=== PATIENT | female | born 1935 | race Caucasian/White ===

== ENCOUNTER 2018-11-30 07:21 | Outpatient (CLI) | payer MEDICARE ==
--- NOTE | 2018-11-30 09:10 | ULT ---
THYROID ULTRASOUND: INDICATIONS: Goiter. COMPARISON: Thyroid ultrasound exam dated 06/14/2014. That exam showed a diffusely heterogeneously enlarged thyr oid. FINDINGS: Both lobes show diffuse heterogeneity and both lobes are enlarged, similar to the prior exam. The ri ght lobe measures 5.8 x 3.1 x 3.2 cm. The left lobe measures 5.6 x 3.2 x 3.4 cm. A heterogeneous nodular density in the inferior right lobe measures 2.0 to 2.4 cm. It has a similar appearance to the prior study, although more cystic components were present at that time. There is a more circumscribed, solid appearing nodule in the mid left lobe, measuring 2.0 to 2.7 cm. This nodular density is better defined today than on the prior study. Another fairly well circumscribed nodular density in the inferior left lobe measures 2.1 to 2.5 cm. There are a few scattered small cystic nodules seen in both lobes. IMPRESSION: Enlarged, heterogeneous thyroid, similar to prior examination. There are bilateral thyroid nodules s een today, as described above. POS: [facility]
--- NOTE | 2018-11-30 14:36 | NM ---
RADIONUCLIDE PARATHYROID SCAN WITH PLANAR AND SPECT-CT IMAGES: HISTORY: Hypercalcemia. RADIOPHARMACEUTICAL:27.5mCi technetium 99m-sestamibi injected intravenously FINDINGS: There is physiologic uptake in the salivary glands and thyroid gland. No abnormal areas of tracer localization are seen in the neck or chest. IMPRESSION: No scintigraphic evidence of parathyroid adenoma
== END 2018-11-30 07:22 | disposition home or self-care (01) ==
LOC: ULT 07:21
PROVIDERS: ATTEND Otolaryngology Plastic Surgery within the Head & Neck
DX: E04.2 Nontoxic multinodular goiter (principal); E83.52 Hypercalcemia; E04.9 Nontoxic goiter, unspecified
CPT/HCPCS: 76536; 78072; A9500

== ENCOUNTER 2018-12-14 06:54 | Day surgery (SDC) | payer MEDICARE ==
[2018-12-13 14:21] VITALS: BMI 18.8
[2018-12-14] MEDS ORDERED: Lidocaine 1% w/Epinephrine 1:100K 20 ML VIAL ONE (08:27)
[2018-12-14 08:31] LABS: Hemoglobin 11.9 g/dL (12.0-16.0)
[2018-12-14 08:40] LABS: Anion Gap 9 mmol/L (10-20); BUN (Urea Nitrogen) 15 mg/dL (9.8-20.1); Calc. Creatinine Clearance 41 mL/min (70-130); Carbon Dioxide 28 mmol/L (23-31); Chloride 103 mmol/L (98-107); Estimated GFR-MDRD 62; Glucose 101 mg/dL (83-110); Potassium 4.4 mmol/L (3.5-5.1); Sodium 136 mmol/L (136-145)
[2018-12-14] MEDS ORDERED: Fentanyl 100 MCG/2 ML VIAL ONE (08:57)
[2018-12-14] MEDS ORDERED: Bacitracin Zinc Ointment 30 gm TUBE ONE (10:58)
[2018-12-14] MEDS ORDERED: Ondansetron PF 4 MG/2 ML Vial ONE (12:52)
[2018-12-14] MEDS ORDERED: Lidocaine 1% PF 5 ML VIAL ONE (12:52)
[2018-12-14] MEDS ORDERED: PHENYLEPHRINE-NS 100 MCG/ML 10 ML SYRINGE ONE (12:52)
[2018-12-14] MEDS ORDERED: Glycopyrrolate 0.2 MG/ML 5 ML SYRINGE ONE (12:52)
[2018-12-14] MEDS ORDERED: PROPOFOL 200 MG/20 ML VIAL ONE (12:52)
[2018-12-14] MEDS ORDERED: Rocuronium Bromide 10 MG/ML (10ML VIAL) ONE (12:52)
[2018-12-14] MEDS ORDERED: ePHEDrine 50 MG/ML VIAL ONE (12:52)
[2018-12-14] MEDS ORDERED: Dexamethasone 20 MG/5 ML VIAL ONE (12:52)
--- NOTE | 2018-12-14 18:14 | EKG ---
Test Reason : PREOP Blood Pressure : / mmHG Vent. Rate : 069 BPM Atrial Rate : 069 BPM P-R Int : 164 ms QRS Dur : 086 ms QT Int : 422 ms P-R-T Axes : 068 049 036 degrees QTc Int : 452 ms Normal sinus rhythm Moderate voltage criteria for LVH, may be normal variant Borderline ECG No previous ECGs available Confirmed by DR. Kalina AGUDELO ([id number]) on 12/14/2018 6:14:02 PM Referred By: CARRI Confirmed By:DR. Kalina AGUDELO
--- NOTE | 2018-12-15 12:33 | OP ---
DATE OF PROCEDURE: 12/14/2018 PREOPERATIVE DIAGNOSES: 1. Hyperparathyroidism. 2. Hypercalcemia. POSTOPERATIVE DIAGNOSES: 1. Hyperparathyroidism. 2. Hypercalcemia. PROCEDURES PERFORMED: 1. Exploration of parathyroid. 2. Left parathyroidectomy. 3. Intraoperative laryngeal nerve monitoring. ESTIMATED BLOOD LOSS: 10 mL. ANESTHESIA: GETA. COMPLICATIONS: None. DESCRIPTION OF PROCEDURE: The patient was taken to the operating room and placed supine on the table. General endotracheal anesthesia was obtained by the Anesthesia Staff. The indirect laryngoscope was used to visualize the laryngeal electrodes on the endotracheal tube and they were confirmed to be between the vocal cords bilaterally. Following this, the shoulder roll was placed and the patient was prepped and draped in standard surgical fashion. Following this, a horizontal incision was made in the skin of the neck and extended through skin, subcutaneous tissue, and the platysmal layer. Subplatysmal flaps were elevated superiorly and inferiorly. Following this, the strap muscles were in the midline and the thyroid gland was encountered. Dissection was first carried on the right side of the thyroid gland. Very small parathyroid glands were identified, one immediately adjacent and medial to the right recurrent laryngeal nerve superior pole of the thyroid lobe. The left side was then explored in a similar fashion and a very large parathyroid gland was encountered on the left superior parathyroid area. This was sent for pathological analysis and was confirmed to be a greater than 500 mg parathyroid tissue. A remnant parathyroid specimen was sent from the right inferior parathyroid as well. The wound was then irrigated as the confirmation of a parathyroid adenoma was made and then the wound was closed using Monocryl stitches for the strap muscles and platysma layers and subcuticular layers and Dermabond for the skin. The patient tolerated the procedure well. Job ID: [id number]
== END 2018-12-14 14:03 | disposition home or self-care (01) ==
LOC: SDC 06:54
PROVIDERS: ATTEND Otolaryngology Plastic Surgery within the Head & Neck
PROC: 0GTR0ZZ Resection of Parathyroid Gland, Open Approach (ICD-10-PCS; principal; 2018-12-14)
DX: E21.3 Hyperparathyroidism, unspecified (principal); E04.2 Nontoxic multinodular goiter; I10 Essential (primary) hypertension; Z79.899 Other long term (current) drug therapy
CPT/HCPCS: 36415; 80048; 85014; 85018; 88305; 88331; 88334; 93005; 93010; J1100; J2001; J2405; J2704; J3010; J3490